=== PATIENT | male | born 1990 | race Caucasian/White ===

== ENCOUNTER 2022-08-04 15:29 | Emergency (ER) | payer OTHER, SELFPAY ==
[2022-08-04 15:37] VITALS: PULSE 91; RESP 16; TEMP 36.9; O2SAT 99; BMI 25.7
--- NOTE | 2022-08-04 15:42 | ED_ITS ---
HPI - Skin/Abscess/Foreign Bdy General Chief complaint: Skin/Abscess/Foreign Body Stated complaint: right leg pain Source: patient Mode of arrival: ambulatory Limitations: no limitations and language barrier History of Present Illness HPI narrative: 32 year old male recently moved from [place] presents to the ED with a painful rash to his right knee He had the same thing while in [place] a month ago was given a cream and the rash returned worse. he denies fever chills cough nausea vomiting or diarrhea. He has not fallen no injuries and is otherwise healthy. He states he has exzema and diabetes. He has never had the rash this bad to his knee. MD complaint: rash Related Data Previous Rx's Medication Instructions Recorded hydrocortisone-aloe vera 1 % 1 appl topical BID #28 grams 08/04/22 topical cream (Cortisone with Aloe) prednisone 20 mg tablet 60 mg PO DAILY Asthma 21 days #63 08/04/22 tabs Allergies Allergy/AdvReac Type Severity Reaction Status Date / Time No Known Allergies Allergy Verified 08/04/22 15:35 Review of Systems Review of Systems: Review of systems: General: Patient denies any fever chills recent illness or falls Musculoskeletal: Denies back pain or body aches or other injuries HEENT: denies headache, runny nose, ear pain Respiratory: denies shortness of breath, cough Cardiovascular: no chest pain or palpitations : denies dysuria, frequency Abdomen: no nausea vomiting denies abdominal pain Extremities: right knee pain and swelling Skin: rashes to knee and elbows no diaphoresis Yes all other systems are reviewed and are negative PMFSH Past Medical History Attestation statement: The following information was validated with the patient. Physical Exam Vital Signs: Vital Signs: Last Vital Signs Temp 98.4 F 08/04/22 15:37 Pulse 91 08/04/22 15:37 Resp 16 08/04/22 15:37 Pulse Ox 99 08/04/22 15:37 O2 Del Method 08/04/22 15:37 BMI result Body Mass Index 25.7 General: Well-appearing well-nourished in no signs of distress HEENT: Normocephalic atraumatic Neck: No signs of JVD, no masses no tenderness or lymphadenopathy Cardiovascular: Regular rate and rhythm Respiratory: Clear to auscultation bilaterally Abdomen: Soft nontender no masses Extremities: Normal pedal pulses no signs of edema Skin: Dry plagues to elbows and kness. The right knee has signs of excortiation all the tendon are intact no signs of infection Dry warm no rashes Back: No tenderness full ROM MDM - Skin/Abscess/Foreign Bdy MDM Narrative Medical decision making narrative: Concern for psoriasis with rash to extensor services elbows and knees. The plaque on the right knee is very excoriated no signs of infection. I will start on a slow prednisone taper and cortizone cream and have the patient follow up and establish with a PCP Differential Diagnosis Differential diagnosis: Likely eczema and contact dermatitis Discharge Plan Discharge Clinical Impression: Psoriasiform dermatitis, Arthritis with psoriasis Instructions: Psoriasis (ED) Additional Instructions: Please call to follow up with a doctor. Your blood sugar is going to go up with the prednisone. If you have any other concerns please return to the ED. Prescriptions: New prednisone 20 mg tablet 60 mg PO DAILY 21 Days Qty: 63 0RF Rx Instructions: Please take 3 tabs for 5 days, 2 tabs for 5 days 1 tab for 5 days. hydrocortisone-aloe vera [Cortisone with Aloe] 1 % cream 1 appl topical BID Qty: 28 0RF
[2022-08-04] MEDS: predniSONE 20 MG TABLET 60 MG PO (15:50)
[2022-08-04] MEDS: Acetaminophen 325 MG TABLET 650 MG PO (15:51)
== END 2022-08-04 16:00 | disposition home or self-care (01) ==
PROVIDERS: Emergency Provider Student in an Organized Health Care Education/Training Program
DX: L40.0 Psoriasis vulgaris (principal); L40.50 Arthropathic psoriasis, unspecified
CPT/HCPCS: 99283

== ENCOUNTER 2025-03-09 11:12 | Outpatient (REF) | payer MEDICAID, OTHER, SELFPAY ==
--- OUTSIDE RECORDS SUMMARY | 2025-03-09 13:23 | XMS_ITS | Encounter Summary ---
Author Organization [employer] Address [address] [facility] [address] [place] [address] Care Team Providers Care Mushroom Sorter Grader Name Role Phone Bethanie Meier MD Primary Care Provider [phone] Reason for Visit * Reason Comments Med Change Request Encounter Details Date Type Department Care Team ([facility] Contact Info) Description 03/09/2025 Refill [facility] [address] [place] [address] Bethanie Meier MD [address] [place] [address] Type 2 diabetes mellitus without complication, without long-term current use of insulin ([facility]) Social History Tobacco Use Types Packs/Day Years Used Date Smoking Tobacco: Never Smokeless Tobacco: Never Alcohol Answer Date Recorded Q1: How often do you have a drink containing alc ohol? 2 03/09/2025 Q2: How many drinks containi ng alcohol do you have on a typical day when you are drinking? 0 03/09/2025 Q3: How often do you have six or more drinks on one occasion? 2 03/09/2025 Depression Answer Date Recorded Patient Health Questionnaire-9 Score 0 03/09/2025 Patient Health Questionnaire-9 Score 0 03/09/2025 Last PHQ-9: Questionnaire Data Not on file 0 03/09/2025 Housing Stability Answer Date Recorded What is your housing situation today? I have marisa reddy 03/09/[address] you li ve. Do you have problems with any of the following? None of the above 03/09/2025 Food Insecurity Answer Date Recorded Within the past 12 months, y ou worried that your food would run out before you got money to buy more: Never True 03/09/2025 Within the past 12 months,th e food you bought just didn't last and you didn't have enough money to get more: Never True Transportation Answer Date Recorded In the past 12 months, has l ack of transportation kept you from medical appts, meetings, work or from getting things needed for daily living? No 03/09/2025 Utilities Answer Date Recorded In the past 12 months, has t he electric, gas, oil or water company threatened to shut off services in your home? No 03/09/2025 Depression Answer Date Recorded Patient Health Questionnaire-2 Score 0 03/09/2025 Internet Access Answer Date Recorded Internet Access Q1 Yes 03/09/2025 Internet Access Q2 Not on file 03/09/2025 Sex and Gender Information Value Date Recorded Sex Assigned at Male 11/11/2022 1:22 PM EST Legal Sex Male 1:19 PM EST Gender Identity Male 11/11/2022 1:22 PM EST Sexual Orientation Straight 02/23/2025 2: 36 PM EDT documented as of this encounter Functional Status * Audit-C Score Answer Date of Assessment Author 2 03/09/2025 10:40 AM Bethanie López MD * Question Answer Date of Assessment Author Q1: How often do you have a drink containing alcohol? Monthly or less 03/09/2025 10:40 AM Kristian López MD Q2: How many drinks containing alcohol do you have on a typical day when you are drinking? Patient does not drink 03/09/2025 10:40 AM Bethanie López MD Q3: How often do you have six or more drinks on one occasion? Less than monthly 03/09/2025 10:40 AM Kristian López MD * Over the past 2 weeks, how often have you been bothered by any of the following problems? Question Answer Date of Assessment Author Patient Health Questionnaire-2 Score 0 02/13 10:14 AM July Rod MA * Little interest or pleasure in doing things Answer Date of Assessment Author Not at all 03/09/2025 10:14 AM EDT Jennifer Brown MA * Feeling down, depressed, or hopeless Answer Date of Assessment Author Not at all 03/09/2025 10:14 AM EDT Jennifer Brown MA * Trouble falling or staying asleep, or sleeping too much Answer Date of Assessment Author Not at all 03/09/2025 10:14 AM EDT Jennifer Brown MA * Feeling tired or having little energy Answer Date of Assessment Author Not at all 03/09/2025 10:14 AM EDT Jennifer Brown MA * Poor appetite or overeating Answer Date of Assessment Author Not at all 03/09/2025 10:14 AM EDT Jennifer Brown MA * Feeling bad about yourself - or that you are a failure or have let yourself or your family down Answer Date of Assessment Author Not at all 03/09/2025 10:14 AM EDT Jennifer Brown MA * Trouble concentrating on things, such as reading the newspaper or watching television Answer Date of Assessment Author Not at all 03/09/2025 10:14 AM EDT Jennifer Brown MA * Moving or speaking so slowly that other people could have noticed? Or the opposite - being so fidgety or restless that you have been moving around a lot more than usual. Answer Date of Assessment Author Not at all 03/09/2025 10:14 AM EDJennifer Agarwal MA * Thoughts that you would be better off or hurting yourself in some way Answer Date of Assessment Author Not at all 03/09/2025 10:14 AM EDT Jennifer Brown MA * Patient Health Questionnaire-9 Score Answer Date of Assessment Author 0 03/09/2025 10:14 AM EDT Jennifer Brown MA documented as of this encounter Plan of Treatment Upcoming Encounters Date Type Department Care Team (Late st Contact Info) Description 04/20/2025 11:15 AM EDT Office Visit [facility] [address] [place] [address] Bethanie Meier MD [address] [place] [address] documented as of this encounter Visit Diagnoses Diagnosis Type 2 diabetes mellitus without complication, without long-term current use of insulin ([facility]) documented in this encounter Additional Health Concerns Assessment Noted Time PHQ-9 Depression Total Score: 0 03/09/20 10:14 AM EDT documented as of this encounter Care Teams Mushroom Sorter Grader Relationship Specialty Start Date End Date Bethanie Meier MD [address] [place] [id number] PCP - General Internal Medicine 03/09/25 documented as of this encounter
[2025-03-09 14:29] LABS: MANUAL DIFF FLAG NO
[2025-03-09 14:35] LABS: Basophils Percent Auto 0.4 % (0-2); Eosinophils Absolute Auto 0.2 X10*3/uL (0.0-0.4); Eosinophils Percent Auto 2.7 % (0-4); Hematocrit 45.1 % (42.0-52.0); Hemoglobin 16.6 g/dl (14.0-18.0); Imm Gran Abs Auto 0.05 X10*3/uL (0.00-0.03); Imm Gran Pct Auto 0.6 % (0.0-0.4); Lymphocytes Absolute Auto 2.8 X10*3/uL (1.2-4.9); Lymphocytes Percent Auto 35.7 % (20-40); Mean Corpuscular HGB Conc 36.8 g/dl (31.0-36.0); Mean Corpuscular Hemoglobin 29.5 pg (27.0-33.0); Mean Corpuscular Volume 80.1 fL (80.0-98.0); Mean Platelet Volume 9.6 fL (9.4-12.4); Monocytes Absolute Auto 0.6 X10*3/uL (0.1-1.2); Monocytes Percent Auto 7.1 % (2-11); Neutrophils Absolute Auto 4.2 x10*3/uL (2.0-8.3); Neutrophils Percent Auto 53.5 % (45-73); Platelet Count 223 X10*3/uL (160-400); Red Blood Count 5.63 X10*6/uL (4.60-5.80); Red Cell Distribution Width 12.3 % (11.0-16.0); White Blood Count 7.9 X10*3/uL (4.8-10.8)
[2025-03-09 15:27] LABS: Albumin Level 4.7 g/dL (3.5-5.0); Alkaline Phosphatase 103 U/L (39-117); Anion Gap 13 (12-20); Aspartate Amino Transferase 32 U/L (5-37); Bilirubin Total 1.3 mg/dL (0.0-1.0); Blood Urea Nitrogen 10 mg/dL (9-16); Calcium 9.9 mg/dL (8.4-10.2); Carbon Dioxide 28 mmol/L (22-29); Chloride 103 mmol/L (96-108); Cholesterol 218 mg/dL (<200); Estimated Glomerular Filt Rate > 60; Glucose Random 251 mg/dL (60-115); HDL Cholesterol 43 mg/dL (>40); LDL Cholesterol Calculated 139 mg/dL (<100); Potassium 5.7 mmol/L (3.3-5.1); Sodium 138 mmol/L (135-145); Total Protein 7.2 g/dL (6.5-8.0); Triglycerides 180 mg/dL (<150)
[2025-03-09 15:38] LABS: Alanine Aminotransferase 64 U/L (0-40)
[2025-03-10 08:52] LABS: ~Hepatitis C Antibody Nonreactive (Nonreactive)
== END 2025-03-09 11:13 | disposition home or self-care (01) ==
LOC: HO.CHCLDS 11:12
PROVIDERS: Visit Provider Internal Medicine
DX: E11.9 Type 2 diabetes mellitus without complications (principal); I10 Essential (primary) hypertension
CPT/HCPCS: 36415; 80053; 80061; 84443; 85025; 86803

== ENCOUNTER 2025-05-19 15:28 | Outpatient (REF) | payer MEDICAID, OTHER, SELFPAY ==
--- OUTSIDE RECORDS SUMMARY | 2025-05-19 15:33 | XMS_ITS | Encounter Summary ---
Author Organization [employer] Address [address] [facility] [address] [place] [address] Care Team Providers Care Aircraft Cabin Cleaner Name Role Phone Bethanie Meier MD Primary Care Provider [phone] Niurka Chi PharmD Unavailable [phone] Encounter Details Date Type Department Care Team (Latest Contact Info) Description 05/19/2025 Travel Social History Tobacco Use Types Packs/Day Years [...] PM EDT documented as of this encounter Plan of Treatment Upcoming Encounters Date Type Department Care Team (Late st Contact Info) Description 05/25/2025 9:30 AM EDT Office Visit [facility] [address] [place] [address] Bethanie Meier MD [address] [place] [address] 06/23/2025 3:00 PM EDT Medication Management [facility] [address] [place] [address] Niurka Chi PharmD [address] [place] [address] documented as of this encounter Visit Diagnoses Not on filedocumented in this encounter Additional Health Concerns Assessment Noted Time PHQ-9 Depression Total Score: 0 03/09/20 10:14 AM EDT documented as of this encounter Care Teams Aircraft Cabin Cleaner Relationship Specialty Start Date End Date Bethanie Meier MD [address] [place] [address] PCP - General Internal Medicine 03/09/25 Niurka Chi PharmD [address] [place] [address] Pharmacist Pharmacy 04/11/25 documented as of this encounter
--- OUTSIDE RECORDS SUMMARY | 2025-05-19 15:33 | XMS_ITS | Clinical Summary ---
Author Organization [employer] Address [address] [facility] 7[address] [place] [address] Care Team Providers Care Film Rental Clerk Name Role Phone Bethanie Meier MD Primary Care Provider [phone] Niurka Chi PharmD Unavailable [phone] Allergies No known active allergies Medications metFORMIN (Glucophage) 1000 MG tabletIndications :Type 2 diabetes mellitus without complication, without long-term current use of insulin ([facility]) Take 1 tablet (1,000 mg) by mouth with breakfast and with evening meal. 180 tablet 1 04/11/20 25 Active Blood Glucose Monitoring Suppl (FreeStyle [place] Lite) w/Device kitIndications:Ty pe 2 diabetes mellitus without complication, without long-term current use of insulin ([facility]) Use to test blood sugar 1 times daily 1 kit 04/11/20 25 Active Alcohol Swabs 70 % padsIndications:T ype 2 diabetes mellitus without complication, without long-term current use of insulin ([facility]) Use to test blood sugar 1 times daily 100 each 11 04/11/20 25 Active naproxen (Naprosyn) 500 MG tabletIndications :Acute nonintractable headache, unspecified headache type Take 1 tablet (500 mg) by mouth if needed each day for mild pain. Do not take Naproxen more than 3 times a week for the headache. 60 tablet 3 04/20/20 25 2024 Active FREESTYLE LITE test stripIndications: Type 2 diabetes mellitus without complication, without long-term current use of insulin ([facility]) Use to test blood sugar 1 times daily 100 each 12 04/20/20 25 2025 Active FreeStyle lancetsIndication s:Type 2 diabetes mellitus without complication, without long-term current use of insulin ([facility]) 1 each by Other route Once per day. 100 each 3 04/20/20 Active repaglinide (Prandin) 0.5 MG tabletIndications :Type 2 diabetes mellitus without complication, without long-term current use of insulin ([facility]) Take 1 tablet (0.5 mg) by mouth before breakfast, before lunch, and before evening meal. 90 tablet 11 04/20/20 25 2025 Active fluconazole (Diflucan) 150 MG tabletIndications :Candidiasis of genitalia 150 mg on day 1, 150 mg on day 3 2 tablet 04/20/20 Active FREESTYLE LITE test stripIndications: Type 2 diabetes mellitus without complication, without long-term current use of insulin ([facility]) Use to test blood sugar 1 times daily 100 each 12 04/11/20 25 2024 Discontinued(R eorder (will not trigger notification to Pharmacy)) FreeStyle lancetsIndication s:Type 2 diabetes mellitus without complication, without long-term current use of insulin ([facility]) 1 each by Other route Once per day. 100 each 3 04/11/20 25 2024 Discontinued(R eorder (will not trigger notification to Pharmacy)) fluconazole (Diflucan) 150 MG tabletIndications :Candidiasis of genitalia 150 mg on day 1, 150 mg on day 3 2 tablet 04/11/20 25 2024 Discontinued(R eorder (will not trigger notification to Pharmacy)) Active Problems Problem Noted Date Diagnosed Date Type 2 diabetes mellitus wit hout complication, without long-term current use of insulin 03/09/2025 Primary hypertension 03/09/2025 Stuttering 03/09/2025 Decreased hearing of both ears 03/09/2025 Encounters Date Type Department Care Team Description 05/19/2025 Telephone [facility] [address] [place] [address] Bethanie Meier MD Appointment Request 05/19/2025 Travel 05/05/2025 Telephone [facility] [address] [place] [address] Bethanie Meier MD No Show 05/05/2025 Telephone [facility] [address] [place] [address] Bethanie Meier MD Care Coordination 05/05/2025 Travel 04/20/2025 11:15 AM EDT Office Visit [facility] [address] [place] [address] Bethanie Meier MD Type 2 diabetes mellitus without complication, without long-term current use of insulin (CMS/HCC) (Primary Dx); Primary hypertension; Acute nonintractable headache, unspecified headache type; Candidiasis of genitalia; Dietary counseling; Exercise counseling; Class 1 obesity due to excess calories with serious comorbidity and body mass index (BMI) of 31.0 to 31.9 in adult 04/20/2025 Travel 04/11/2025 2:45 PM EDT Office Visit [facility] [address] [place] [address] Bethanie Meier MD Type 2 diabetes mellitus without complication, without long-term current use of insulin (CMS/HCC) (Primary Dx); Candidiasis of genitalia; Hyperkalemia 04/11/2025 Orders Only [facility] [address] [place] [address] Bethanie Meier MD Type 2 diabetes mellitus without complication, without long-term current use of insulin (CMS/HCC) (Primary Dx) 04/11/2025 Travel 03/22/[address] [facility] [address] [place] [phone] Bethanie Meier MD 03/10/[address] [facility] [address] [place] [phone] Bethanie Wyatt MD 03/10/2025 Results Follow-Up [facility] [address] [place] [address] Katerin Dorado, FERNANDO CBC auto differential, Comprehensive Metabolic Panel, Lipid Panel, Standard, Additional followed-up results: 3 03/09/2025 10:00 AM EDT Office Visit [facility] [address] [place] [address] Bethanie Meier MD Type 2 diabetes mellitus without complication, without long-term current use of insulin (CMS/HCC) (Primary Dx); Primary hypertension; Stuttering; Decreased hearing of both ears 03/09/2025 Telephone [facility] [address] [place] [address] Bethanie Meier MD Results 03/09/2025 Orders Only [facility] [address] [place] [address] Bethanie Meier MD Hyperkalemia (Primary Dx); Transaminitis 03/09/2025 Refill [facility] [address] [place] [address] Bethanie Meier MD Type 2 diabetes mellitus without complication, without long-term current use of insulin (CMS/HCC) 03/09/2025 Travel 03/08/2025 Telephone [facility] [address] [place] [address] Bethanie Meier MD chart prep 03/03/[address] [facility] [address] [place], [place] [phone] Jose Corrales MD Pre-visit Planning (Pre visit planning LVM ) 02/23/2025 Travel from Last 3 Months Family History Medical History Relation Name Comments Diabetes type II Brother Diabetes type II Father Hypertension Father Diabetes Mother Hypertension Mother Relation Name Status Comments Brother Father Mother Social History Tobacco Use Types Packs/Day Years Used Date Smoking Tobacco: Never Smokeless Tobacco: Never Tobacco Cessation:Counseling Given: Not Answered Alcohol Answer Date Recorded Q1: How often [...] Orientation Straight 02/23/2025 2: 36 PM EDT Last Filed Vital Signs Vital Sign Reading Time Taken Comments Blood Pressure 134/76 05/05/2025 10:17 AM EDT Pulse 79 05/05/2025 10:17 AM EDT Temperature 36.6 C (97.8 F) 04/20/2025 11:41 AM EDT Respiratory Rate 20 04/20/2025 11:41 AM EDT Oxygen Saturation 99% 05/05/2025 10:17 AM EDT Inhaled Oxygen Concentration - - Weight 108 kg (237 lb) 04/20/2025 11:41 AM EDT Height 185.4 cm (6' 1 ) 04/20/2025 11:41 AM EDT Body Mass Index 31.27 04/20/2025 11:41 AM EDT Plan of Treatment Upcoming Encounters Date Type Department Care Team (Late st Contact Info) Description 05/25/2025 9:30 AM EDT Office Visit [facility] [address] [place] [address] Bethanie Meier MD [address] [place] [address] 06/23/2025 3:00 PM EDT Medication Management [facility] [address] [place] [address] Niurka Chi, PharmD [address] [place], [place] [phone] Health Maintenance Due Date Last Done Comments HIV Screening 1992 Disability Screening 1992 Diabetes: Foot Exam 2002 Eye Exam 2002 Family Planning (PISQ) 2007 HPV Vaccines (1 - Male 3-dos e series) 2007 DTaP/Tdap/Td Vaccines (1 - Tdap) 2011 Diabetes: Urine Protein Screening 2011 Hepatitis B Vaccines (1 of 3 - 19+ 3-dose series) 2011 Pneumococcal Vaccine: Pediatrics (0 to 5 Years) and At-Risk Patients (6 to 49) Years (1 of 2 - PCV) 2011 COVID-19 Vaccine (1 - 2023-2 5 season) 2025 Influenza Vaccine (#1) 2025 Diabetes: Hemoglobin A1C 06/09/2025 03/09/2025 Alcohol/Substance Use Screening 03/09/2026 03/09/2025 Depression Screening 03/09/2026 03/09/2025, 03/09/2025 Lipid Panel 03/09/2026 03/09/2025 SDOH Screening 03/09/2026 03/09/2025 Tobacco Screening 04/20/2026 04/20/2025 Zoster Vaccines (1 of 2) 2042 RSV Patients and Patients Aged 60 years or older (1 - 1-dose 75+ series) 2067 Hepatitis C Screening Completed 03/09/2025 HIB Vaccines Aged Out No longer eligi ble based on patient's age to complete this topic Hepatitis A Vaccines Aged Out No long er eligible based on patient's age to complete this topic IPV Vaccines Aged Out No longer eligi ble based on patient's age to complete this topic Meningococcal B Vaccine Aged Out No l onger eligible based on patient's age to complete this topic Meningococcal Vaccine Aged Out No bailee leonardo eligible based on patient's age to complete this topic RSV under 20 months Aged Out No longe r eligible based on patient's age to complete this topic Rotavirus Vaccines Aged Out No longer eligible based on patient's age to complete this topic Procedures Procedure Name Priority Date/Time Associated Diagnosis Comments POCT GLUCOSE Routine 04/20/2025 11:54 AM EDT Type 2 diabetes mellitus without complication, without long-term current use of insulin (CMS/HCC) POCT GLUCOSE Routine 04/11/2025 2:57 PM EDT Type 2 diabetes mellitus without complication, without long-term current use of insulin (CMS/HCC) POCT URINALYSIS DIPSTICK Routine 04/11/2025 1:40 PM EDT Type 2 diabetes mellitus without complication, without long-term current use of insulin (CMS/HCC) POCT GLUCOSE Routine 04/11/2025 1:20 PM EDT Type 2 diabetes mellitus without complication, without long-term current use of insulin (CMS/HCC) HEPATITIS C AB W/REFL TO HCV RNA, QN, PCR Routine 03/09/2025 11:17 AM EDT Type 2 diabetes mellitus without complication, without long-term current use of insulin (CMS/HCC) Primary hypertension TSH W/REFLEX TO FT4 Routine 03/09/2025 1 1:17 AM EDT Type 2 diabetes mellitus without complication, without long-term current use of insulin (CMS/HCC) Primary hypertension LIPID PANEL, STANDARD Routine 03/09/2025 11:17 AM EDT Type 2 diabetes mellitus without complication, without long-term current use of insulin (CMS/HCC) Primary hypertension COMPREHENSIVE METABOLIC PANEL Routine 03/09/2025 11:17 AM EDT Type 2 diabetes mellitus without complication, without long-term current use of insulin ([facility]) Primary hypertension CBC WITH AUTO DIFFERENTIAL Routine 03/09/2025 11:17 AM EDT Type 2 diabetes mellitus without complication, without long-term current use of insulin ([facility]) Primary hypertension POCT GLYCATED HEMOGLOBIN, TOTAL Routine 03/09/2025 11:14 AM EDT Type 2 diabetes mellitus without complication, without long-term current use of insulin ([facility]) POCT GLUCOSE Routine 03/09/2025 11:13 AM EDT Type 2 diabetes mellitus without complication, without long-term current use of insulin ([facility]) from Last 3 Months Results * (ABNORMAL) POCT Glucose (04/20/2025 11:54 AM EDT) Only the most recent of4 resultswithin the time period is included. Glucose Blood, POC 230(A) 60 - 200 mg/dL QC Media Lot # [id number] Lot# Expiration Date Blood Capillary blood specimen / Unknown 04/20/2025 11:54 AM EDT Bethanie Meier MD POINT OF CARE TEST ENTER/ED IT ORDERABLES Final Result * (ABNORMAL) POCT Urinalysis (04/11/2025 1:40 PM EDT) Color, UA Yellow Clarity, UA Clear Glucose, UA 4+ >500 Bilirubin, UA Negative Ketones, UA Negative Spec Grav, UA 1.015 Blood, UA Negative Negative, None Detected pH, UA 5.5 Protein, UA Negative Urobilinogen, UA 0.2 Leukocytes, UA Negative Negative, Rare, Trace Nitrite, UA Negative Negative, None Detected Appearance, UA normal QC Media Lot # [id number] Lot# Expiration Date 3312,026 Urine 04/11/2025 1:40 PM EDT Bethanie Meier MD POINT OF CARE TEST ENTER/ED IT ORDERABLES Final Result * TSH W/Reflex to FT4 (03/09/2025 11:17 AM EDT) TSH reflex Free T4 1.10 0.32 - 4.0 uIU/mL [facility] Blood Venous blood specimen / Unknown 03/09/2025 11:17 AM EDT 03/09/2025 2:24 PM EDT Bethanie Meier MD LAB BLOOD ORDERABLES Final Result Performing Organization Address City/State/[facility] Co de Phone Number [facility] [address] [place] [phone] * (ABNORMAL) CBC auto differential (03/09/2025 11:17 AM EDT) Pathologist [facility] White Blood Count 7.9 4.8 - 10.8 X10*3/uL [facility] Red Blood Count 5.63 4.60 - 5.80 X10*6/uL [facility] Hemoglobin 16.6 14.0 - 18.0 g/dl [facility] Hematocrit 45.1 42.0 - 52.0 % [facility] Mean Corpuscular Volume 80.1 80.0 - 98.0 fL [facility] Mean Corpuscular Hemoglobin 29.5 27.0 - 33.0 pg [facility] Mean Corpuscular HGB Conc 36.8(H) 31.0 - 36.0 g/dl [facility] Red Cell Distribution Width 12.3 11.0 - 16.0 % [facility] Platelet Count 223 160 - 400 X10*3/uL [facility] Mean Platelet Volume 9.6 9.4 - 12.4 fL [facility] Neutrophils Percent Auto 53.5 45 - 73 % [facility] Imm Gran Pct Auto 0.6(H) 0.0 - 0.4 % [facility] Lymphocytes Percent Auto 35.7 20 - 40 % [facility] Monocytes Percent Auto 7.1 2 - 11 % [facility] Eosinophils Percent Auto 2.7 0 - 4 % [facility] Basophils Percent Auto 0.4 0 - 2 % [facility] NRBC Pct Auto 0.0 0.0 - 0.2 /100WBC [facility] Neutrophils Absolute Auto 4.2 2.0 - 8.3 x10*3/uL [facility] Imm Gran Abs Auto 0.05(H) 0.00 - 0.03 X10*3/uL [facility] Lymphocytes Absolute Auto 2.8 1.2 - 4.9 X10*3/uL [facility] Monocytes Absolute Auto 0.6 0.1 - 1.2 X10*3/uL [facility] Eosinophils Absolute Auto 0.2 0.0 - 0.4 X10*3/uL [facility] Basophils Absolute Auto 0.0 0.0 - 0.2 X10*3/uL [facility] NRBC Abs Auto 0.000 0.0 - 0.012 X10*3/uL [facility] Blood Venous blood specimen / Unknown 03/09/2025 11:17 AM EDT 03/09/2025 2:24 PM EDT Bethanie Meier MD LAB BLOOD ORDERABLES Final Result [facility] [address] [place] [phone] * Hepatitis C Antibody with Reflex to HCV, RNA, Quantitative, Real-Time PCR (03/09/2025 11:17 AM EDT) Hepatitis C Antibody Nonreactive Nonreactive [facility] Comment:Antibodies to HCV no t detected; does not exclude early acuteHCV infection. Blood Venous blood specimen / Unknown 03/09/2025 11:17 AM EDT 03/09/2025 2:24 PM EDT us Bethanie Meier MD LAB BLOOD ORDERABLES Final Result [facility] [address] [place] [phone] * (ABNORMAL) Lipid Panel, Standard (03/09/2025 11:17 AM EDT) Triglycerides 180(H) <150 mg/dL [facility] Comment:Desirable Triglyceri de: less than 150 mg/dLBorderline High Triglyceride 150-199 mg/dLHigh Triglyceride: 200-499 mg/dLVery High Triglyceride: greater than or equal to 5OO mg/dL Cholesterol 218(H) <200 mg/dL [facility] Comment:Desirable Cholestero l: less than 200 mg/dLBorderline High Cholesterol: 200-239 mg/dLHigh Cholesterol: greater than 239 mg/dL LDL Cholesterol Calculated 139(H) <100 mg/dL [facility] Comment:Desirable LDL: less than 100 mg/dLNear Optimal/Above Optimal LDL: 110- 129 mg/dLBorderline High LDL: 130-159 mg/dLHigh LDL: 160-189 mg/dLVery High LDL: greater than or equal to 190 mg/dL HDL Cholesterol 43 >40 mg/dL [facility] Comment:Desirable HDL: great er than 40 mg/dL Note: This HDL assay may give artificially low results in patients with liver disease. Blood Venous blood specimen / Unknown 03/09/2025 11:17 AM EDT 03/09/2025 2:24 PM EDT us Bethanie Meier MD LAB BLOOD ORDERABLES Final Result [facility] [address] [place] [address] [phone] * (ABNORMAL) Comprehensive Metabolic Panel (03/09/2025 11:17 AM EDT) Sodium 138 135 - 145 mmol/L [facility] Potassium 5.7(H) 3.3 - 5.1 mmol/L [facility] Chloride 103 96 - 108 mmol/L [facility] Carbon Dioxide 28 22 - 29 mmol/L [facility] Anion Gap 13 12 - 20 [facility] Urea Nitrogen (BUN) 10 9 - 16 mg/dL [facility] Creatinine, Serum 0.79 0.5 - 1.4 mg/dL [facility] Estimated Glomerular Filt Rate >60 [facility] Comment:Chronic Kidney Disea se: Estimated GFR < 60 mL/min/1.19a6Eoutqc Kidney Disease: Estimated GFR < 15 mL/min/1.73m2 Glucose 251(H) 60 - 115 mg/dL [facility] Calcium 9.9 8.4 - 10.2 mg/dL [facility] Bilirubin, Total 1.3(H) 0.0 - 1.0 mg/dL [facility] Aspartate Amino Transferase 32 5 - 37 U/L [facility] Alanine Aminotransferase 64(H) 0 - 40 U/L [facility] Total Protein 7.2 6.5 - 8.0 g/dL [facility] Albumin Level 4.7 3.5 - 5.0 g/dL [facility] Alkaline Phosphatase 103 39 - 117 U/L [facility] Blood Venous blood specimen / Unknown 03/09/2025 11:17 AM EDT 03/09/2025 2:24 PM EDT Bethanie Meier MD LAB BLOOD ORDERABLES Final Result [facility] [address] [place] [phone] [phone] * (ABNORMAL) POCT HGB A1C (03/09/2025 11:14 AM EDT) Hemoglobin A1C 10.4(A) 4.0 - 6.0 % QC Media Lot # [id number] Lot# Expiration Date ,602 Blood 03/09/2025 11:1 4 AM EDT Bethanie Meier MD POINT OF CARE TEST ENTER/ED IT ORDERABLES Final Result from Last 3 Months Insurance [facility] F[employer] Care Teams Film Rental Clerk Relationship Specialty Start Date End Date Bethanie Meier MD [address] [place] [phone] PCP - General Internal Medicine 03/09/25 Niurka Chi, FrankD [address] [place] [address] Pharmacist Pharmacy 04/11/25
--- OUTSIDE RECORDS SUMMARY | 2025-05-19 15:33 | XMS_ITS | Encounter Summary ---
Author Organization [employer] Address [address] [facility] 7 [place] [address] Care Team Providers Care Teacher Dramatics Name Role Phone Bethanie Meier MD Primary Care Provider [phone] Niurka Chi PharmD Unavailable [phone] Encounter Details Date Type Department Care Team ([facility] st Contact Info) Description 04/11/2025 Orders Only [facility] [address] [place] [address] Bethanie Meier MD [address] [place] [address] Type 2 diabetes mellitus without complication, without long-term current use of insulin (CMS/[facility]) (Primary Dx) Social History Tobacco Use Types Packs/Day Years [...] Description 05/25/2025 9:30 AM EDT Office Visit [facility] [address] [place] [address] Bethanie Meier MD [address] [place] [address] 06/23/2025 3:00 PM EDT Medication Management [facility] [address] [place] [address] Niurka Chi, PharmD [address] [place], [place] [phone] documented as of this encounter Visit Diagnoses Diagnosis Type 2 diabetes mellitus without complication, without long-term current use of insulin ([facility])- Primary documented in this encounter Additional Health Concerns Assessment Noted Time PHQ-9 Depression Total Score: 0 03/09/20 10:14 AM EDT documented as of this encounter Care Teams Teacher Dramatics Relationship Specialty Start Date End Date Bethanie Meier MD [address] [place] [phone] PCP - General Internal Medicine 03/09/25 Niurka Chi PharmD [address] [place] [phone] Pharmacist Pharmacy 04/11/25 documented as of this encounter
--- OUTSIDE RECORDS SUMMARY | 2025-05-19 15:33 | XMS_ITS | Encounter Summary ---
Author Organization [employer] Address [address] [facility] 7 [place] [address] Care Team Providers Care Outside B2B Sales Name Role Phone Bethanie Meier MD Primary Care Provider [phone] Niurka Chi PharmD Unavailable [phone] Reason for Visit * Reason Onset Date Comments Appointment Request 05/19/2025 Encounter Details Date Type Department Care Team ([facility] Contact Info) Description 05/19/2025 Telephone [facility] [address] [place] [address] Bethanie Meier MD [address] [place] [address] Appointment Request Social History Tobacco Use Types Packs/Day Years [...] PM EDT documented as of this encounter Miscellaneous Notes * Telephone Encounter - Katerin Dorado RN - 05/19/2025 3:26 PM EDT Pt at [facility] appt and states that he has a lump on his chest for 10 years. He said his brother hasd one and the doctor told him it is meat . RN offered 05/25, 9:30 appt with PCP pt verbalized understanding and agreement with the plan of care. RN spoke to PCP and he said to put him on the schedule documented in this encounter Plan of Treatment Upcoming Encounters Date Type Department Care Team (Late st Contact Info) Description 05/25/2025 9:30 AM EDT Office Visit [facility] [address] [place], [place] [phone] Bethanie Meier MD [address] [place] [address] 06/23/2025 3:00 PM EDT Medication Management [facility] [address] [place] [address] Niurka Chi PharmD [address] [place] [address] documented as of this encounter Visit Diagnoses Not on filedocumented in this encounter Additional Health Concerns Assessment Noted Time PHQ-9 Depression Total Score: 0 03/09/20 10:14 AM EDT documented as of this encounter Care Teams Outside B2B Sales Relationship Specialty Start Date End Date Bethanie Meier MD [address] [place] [address] PCP - General Internal Medicine 03/09/25 Niurka Chi PharmD [address] [place] [address] Pharmacist Pharmacy 04/11/25 documented as of this encounter
[2025-05-19 18:14] LABS: INTERNATIONAL NORM RATIO 0.9 (0.9-1.1); Prothrombin Time 10.5 SEC (10.9-12.4)
[2025-05-19 18:30] LABS: Microalbum/Creatinine Ratio Ur 58.7 ug/mg cr (<30)
[2025-05-19 18:30] LABS: Iron 87 mcg/dL (45-160); Percent Iron Saturation 30 % (15-50); Potassium 4.1 mmol/L (3.3-5.1); Total Iron Binding Capacity 293 mcg/dL (228-428); Unsaturated Iron Binding 206 ug/dL
[2025-05-19 18:36] LABS: Ferritin 643 ng/mL (20-250)
[2025-05-22 04:18] LABS: HBS Num1 > 1000.00 mIU/mL (0-7.99); ~Hepatitis B Surface Antibody REACTIVE (Nonreactive)
== END 2025-05-19 15:29 | disposition home or self-care (01) ==
LOC: HO.CHCLDS 15:28
PROVIDERS: Visit Provider Internal Medicine
DX: Z11.59 Encounter for screening for other viral diseases (principal); Z01.84 Encounter for antibody response examination; E11.9 Type 2 diabetes mellitus without complications; E87.5 Hyperkalemia; R74.01 Elevation of levels of liver transaminase levels
CPT/HCPCS: 36415; 82043; 82570; 82728; 82784; 83540; 84132; 85610; 86706

== ENCOUNTER 2025-05-30 09:20 | Outpatient (REF) | payer MEDICAID, OTHER, SELFPAY ==
--- OUTSIDE RECORDS SUMMARY | 2025-05-30 11:47 | XMS_ITS | Encounter Summary ---
Author Organization [employer] Address [address] [facility] 7 [place] [address] Care Team Providers Care Flarer Name Role Phone Bethanie Meier MD Primary Care Provider [phone] Niurka Chi PharmD Unavailable [phone] Encounter Details Date Type Department Care Team ([facility] st Contact Info) Description 05/21/2025 Orders Only [facility] MED & PEDS [address] [place] [address] Bethanie Meier MD [address] [place] [address] Transaminitis (Primary Dx) Social History Tobacco Use Types [...] Upcoming Encounters Date Type Department Care Team ([facility] st Contact Info) Description 06/23/2025 3:00 PM EDT Medication Management [facility] MED & PEDS [address] [place] [address] Niurka Chi, PharmD [address] [place], [place] [phone] Scheduled Orders Name Type Priority Associated Diagnoses Orde r Schedule Hereditary Hemochromatosis DNA Mutation Analysis Lab Routine Transaminitis Expected: 05/21/2025 (Approximate), Expires: 05/21/2026 documented as of this encounter Visit Diagnoses Diagnosis Transaminitis- Primary Nonspecific elevation of levels of transaminase or lactic acid dehydrogenase (LDH) documented in this encounter Additional Health Concerns Assessment Noted Time PHQ-9 Depression Total Score: 0 03/09/20 25 10:14 AM EDT documented as of this encounter Care Teams Flarer Relationship Specialty Start Date End Date Bethanie Meier MD [address] [place] [address] PCP - General Internal Medicine 03/09/25 Niurka Chi, FrankD [address] [place] [address] [place] [address] Pharmacist Pharmacy 04/11/25 documented as of this encounter
--- OUTSIDE RECORDS SUMMARY | 2025-05-30 11:47 | XMS_ITS | Encounter Summary ---
Author Organization [employer] Address [address] [facility] 7 [place] [address] Care Team Providers Care Manager Research Name Role Phone Bethanie Meier MD Primary Care Provider [phone] Niurka Chi PharmD Unavailable [phone] Encounter Details Date Type Department Care Team ([facility] st Contact Info) Description 04/11/2025 Orders Only [facility] MED & PEDS [address] [place] [address] Bethanie Meier MD [address] [place] [address] Type 2 diabetes mellitus without complication, without long-term current use of insulin (CMS/[facility]) (Primary Dx) Social History Tobacco Use Types [...] Upcoming Encounters Date Type Department Care Team ([facility] st Contact Info) Description 06/23/2025 3:00 PM EDT Medication Management [facility] MED & PEDS [address] [place] [address] Niurka Chi, PharmD [address] [place] [address] documented as of this encounter Visit Diagnoses Diagnosis Type 2 diabetes mellitus without complication, without long-term current use of insulin ([facility])- Primary documented in this encounter Additional Health Concerns Assessment Noted Time PHQ-9 Depression Total Score: 0 03/09/20 25 10:14 AM EDT documented as of this encounter Care Teams Manager Research Relationship Specialty Start Date End Date Bethanie Meier MD [address] [place] [address] PCP - General Internal Medicine 03/09/25 Niurka Chi, PharmD [address] [place] [address] Pharmacist Pharmacy 04/11/25 documented as of this encounter
--- OUTSIDE RECORDS SUMMARY | 2025-05-30 11:47 | XMS_ITS | Clinical Summary ---
Author Organization [employer] Address [address] [facility] 7t [place] [address] Care Team Providers Care Lifestyle Coordinator Name Role Phone Bethanie Meier MD Primary Care Provider [phone] Niurka Chi PharmD Unavailable [phone] Allergies No known active allergies Medications metFORMIN (Glucophage) 1000 MG tabletIndications: Type 2 diabetes mellitus without complication, without long-term current use of insulin (CMS/HCC) Take 1 tablet (1,000 mg) by mouth with breakfast and with evening meal. 180 tablet 1 5 Active Blood Glucose Monitoring Suppl (FreeStyle [place] Lite) w/Device kitIndications:Typ e 2 diabetes mellitus without complication, without long-term current use of insulin (CMS/HCC) Use to test blood sugar 1 times daily 1 kit 5 Active Alcohol Swabs 70 % padsIndications:Ty pe 2 diabetes mellitus without complication, without long-term current use of insulin (CMS/HCC) Use to test blood sugar 1 times daily 100 each 11 5 Active FREESTYLE LITE test stripIndications:T ype 2 diabetes mellitus without complication, without long-term current use of insulin (CMS/HCC) Use to test blood sugar 1 times daily 100 each 12 5 026 Active FreeStyle lancetsIndications :Type 2 diabetes mellitus without complication, without long-term current use of insulin (CMS/HCC) 1 each by Other route Once per day. 100 each 3 5 Active repaglinide (Prandin) 0.5 MG tabletIndications: Type 2 diabetes mellitus without complication, without long-term current use of insulin ([facility]) Take 1 tablet (0.5 mg) by mouth before breakfast, before lunch, and before evening meal. 90 tablet 11 5 026 Active fluconazole (Diflucan) 150 MG tabletIndications: Candidiasis of genitalia 150 mg on day 1, 150 mg on day 3 2 tablet 5 Active naproxen (Naprosyn) 500 MG tabletIndications: Acute nonintractable headache, unspecified headache type Take 1 tablet (500 mg) by mouth if needed each day for mild pain. Do not take Naproxen more than 3 times a week for the headache. 60 tablet 3 5 025 Active Problems Problem Noted Date Diagnosed Date Type 2 diabetes mellitus wit hout complication, without long-term current use of insulin 03/09/2025 Primary hypertension 03/09/2025 Stuttering 03/09/2025 Decreased hearing of both ears 03/09/2025 Encounters Date Type Department Care Team Description 05/24/2025 Telephone [facility] MED & PEDS [address] [place] [address] Bethanie Meier MD chart prep 05/22/2025 Results Follow-Up [facility] MED & PEDS [address] [place] [address] Elidia Coats RN Potassium, Immunoglobulins, Quantitative, IgA, IgG, IgM, Prothrombin Time-INR, Additional followed-up results: 2 05/21/2025 Orders Only [facility] MED & PEDS [address] [place] [address] Bethanie Meier MD Transaminitis (Primary Dx) 05/19/2025 Orders Only [facility] MED & PEDS [address] [place] [address] Bethanie Meier MD 05/19/2025 Telephone [facility] MED [facility] PED[facility] [address] [place] [address] Bethanie Meier MD Appointment Request 05/19/2025 Travel 05/05/2025 Telephone [facility] [address] [place] [address] Bethanie Meier MD No Show 05/05/2025 Telephone [facility] [address] [place] [address] Bethanie Meier MD Care Coordination 05/05/2025 Travel 04/20/2025 11:15 AM EDT Office Visit [facility] P[facility] [address] [place] [address] Bethanie Meier MD Type 2 diabetes mellitus without complication, without long-term current use of insulin (CMS/HCC) (Primary Dx); Primary hypertension; Acute nonintractable headache, unspecified headache type; Candidiasis of genitalia; Dietary counseling; Exercise counseling; Class 1 obesity due to excess calories with serious comorbidity and body mass index (BMI) of 31.0 to 31.9 in adult 04/20/2025 Travel 04/11/2025 2:45 PM EDT Office Visit [facility] MED [facility] [address] [place] [address] Bethanie Meier MD Type 2 diabetes mellitus without complication, without long-term current use of insulin (CMS/HCC) (Primary Dx); Candidiasis of genitalia; Hyperkalemia 04/11/2025 Orders Only [facility] MED [facility] P[facility] [address] [place] [address] Bethanie Meier MD Type 2 diabetes mellitus without complication, without long-term current use of insulin (CMS/HCC) (Primary Dx) 04/11/2025 Travel 03/22/2025 Telephone [facility] MEDICINE [address] [place] [phone] Bethanie Wyatt MD 03/10/[address] [address] Bethanie Wyatt MD 03/10/2025 Results Follow-Up [facility] P[facility] [address] [place] [address] Katerin Dorado RN CBC auto differential, Comprehensive Metabolic Panel, Lipid Panel, Standard, Additional followed-up results: 3 03/09/2025 10:00 AM EDT Office Visit [facility] PED[facility] [address] [place] [address] Bethanie Meier MD Type 2 diabetes mellitus without complication, without long-term current use of insulin (CMS/HCC) (Primary Dx); Primary hypertension; Stuttering; Decreased hearing of both ears 03/09/2025 Telephone [facility] P[facility] [address] [place] [address] Bethanie Meier MD Results 03/09/2025 Orders Only [facility] MED [facility] PED[facility] [address] [place] [address] Bethanie Meier MD Hyperkalemia (Primary Dx); Transaminitis 03/09/2025 Refill [facility] P[facility] [address] [place] [address] Bethanie Meier MD Type 2 diabetes mellitus without complication, without long-term current use of insulin (CMS/HCC) 03/09/2025 Travel 03/08/2025 Telephone [facility] PED[facility] [address] [place] [address] Bethanie Meier MD chart prep 03/03/2025 Patient Outreach [facility] [address] [place], [place] [phone] Jose Corrales MD Pre-visit Planning (Pre visit planning LVM ) from Last 3 Months Family History Medical [...] Care Team (Late st Contact Info) Description 06/23/2025 3:00 PM EDT Medication Management [facility] MED & PEDS [address] [place] [address] Niurka Chi, PharmD [address] [place] [address] Health Maintenance Due Date Last Done Comments HIV Screening 1992 Disability Screening 1992 Diabetes: Foot Exam 2002 Eye Exam 2002 Family Planning (PISQ) 2007 HPV Vaccines (1 - Male 3-dos e series) 2007 DTaP/Tdap/Td Vaccines (1 - Tdap) 2011 Hepatitis B Vaccines (1 of 3 - 19+ 3-dose series) 2011 Pneumococcal Vaccine: Pediatrics (0 to 5 Years) and At-Risk Patients (6 to 49) Years (1 of 2 - PCV) 2011 COVID-19 Vaccine ( - 2023-2 5 season) 2025 Influenza Vaccine (#1) 2025 Diabetes: Hemoglobin A1C 06/09/2025 03/09/2025 Alcohol/Substance Use Screening 03/09/2026 03/09/2025 Depression Screening 03/09/2026 03/09/2025, 03/09/2025 Lipid Panel 03/09/2026 03/09/2025 SDOH Screening 03/09/2026 03/09/2025 Tobacco Screening 04/20/2026 04/20/2025 Diabetes: Urine Protein Screening 05/19/2026 05/19/2025 Zoster Vaccines (1 of 2) 2042 RSV [...] Procedure Name Priority Date/Time Associated Diagnosis Comments ALBUMIN, RANDOM URINE W/CREATININE Routine 05/19/2025 3:34 PM EDT HEPATITIS B SURFACE ANTIBODY, QUALITATIVE Routine 05/19/2025 3:30 PM EDT Transaminitis IRON AND TOTAL IRON BINDING CAPACITY Routine 05/19/2025 3:30 PM EDT Transaminitis FERRITIN Routine 05/19/2025 3:30 PM EDT Transaminitis PROTHROMBIN TIME-INR Routine 05/19/2025 3:30 PM EDT Transaminitis IMMUNOGLOBULINS, QUANTITATIVE, IGA, IGG, IGM Routine 05/19/2025 3:30 PM EDT Transaminitis POTASSIUM Routine 05/19/2025 3:30 PM EDT Hyperkalemia POCT GLUCOSE Routine 04/20/2025 11:54 AM EDT [...] complication, without long-term current use of insulin ([facility]/HCC) Primary hypertension TSH W/REFLEX TO FT4 Routine 03/09/2025 1 1:17 AM EDT Type 2 diabetes mellitus without complication, without long-term current use of insulin ([facility]/HCC) Primary hypertension LIPID PANEL, STANDARD Routine 03/09/2025 11:17 AM EDT Type 2 diabetes mellitus without complication, without long-term current use of insulin ([facility]/HCC) Primary hypertension COMPREHENSIVE METABOLIC PANEL Routine 03/09/2025 11:17 AM EDT Type 2 diabetes mellitus without complication, without long-term current use of insulin ([facility]/HCC) Primary hypertension CBC WITH AUTO DIFFERENTIAL Routine 03/09/2025 11:17 AM EDT Type 2 diabetes mellitus without complication, without long-term current use of insulin ([facility]/HCC) Primary hypertension POCT GLYCATED HEMOGLOBIN, TOTAL Routine 03/09/2025 11:14 AM EDT Type 2 diabetes mellitus without complication, without long-term current use of insulin ([facility]) POCT GLUCOSE Routine 03/09/2025 11:13 AM EDT Type 2 diabetes mellitus without complication, without long-term current use of insulin ([facility]) from Last 3 Months Results * (ABNORMAL) Albumin, Random Urine W/Creatinine (05/19/2025 3:34 PM EDT) Creatinine, Urine 136.14 mg/dL [facility] Microalbumin Urine 80.0 mg/L [facility] Microalbum Creatinine Ratio Ur 58.7(H) <30 ug/mg cr [facility] Comment:Albumin/Creatinine R atio Reference Ranges: Normal: < 30 ug/mg creatinine Microalbuminuria: 30 - 300 ug/mg creatinineClinical Albuminuria: > 300 ug/mg creatinine 05/19/2025 3:34 PM EDT 05/19/2025 6:03 PM EDT Bethanie Meier MD LAB URINE ORDERABLES Final Result Performing Organization Address [facility]/ZIP Co de Phone Number [facility] [address] [place] [address] [phone] * Iron And Total Iron Binding Capacity (05/19/2025 3:30 PM EDT) Pathologist [facility] Iron 87 45 - 160 mcg/dL [facility] Total Iron Binding Capacity 293 228 - 428 mcg/dL [facility] Percent Iron Saturation 30 15 - 50 % [facility] Unsaturated Iron Binding 206 ug/dL [facility] Blood Venous blood specimen / Unknown 05/19/2025 3:30 PM EDT 05/19/2025 5:51 PM EDT us Bethanie Meier MD LAB BLOOD ORDERABLES Final Result Performing Organization Address [facility]UST Co de Phone Number [facility] [address] [place] [address] [phone] * Hepatitis B Surface Antibody, Qualitative (05/19/2025 3:30 PM EDT) Pathologist [facility] ~Hepatitis B Surface Antibody REACTIVE Nonreactive [facility] Comment:REACTIVE: > 11.99 mI U/mL Blood Venous blood specimen / Unknown 05/19/2025 3:30 PM EDT 05/19/2025 5:51 PM EDT Bethanie Meier MD LAB BLOOD ORDERABLES Final Result Performing Organization Address [facility] Co de Phone Number [facility] [address] [place] [address] [phone] * (ABNORMAL) Prothrombin Time-INR (05/19/2025 3:30 PM EDT) Pathologist [facility] Prothrombin Time 10.5(L) 10.9 - 12.4 SEC [facility] INTERNATIONAL NORM RATIO 0.9 0.9 - 1.1 [facility] Comment:INTERNATIONAL NORMAL IZED RATIO (INR) REFERENCE RANGES Reference RangeFor patients not on anticoagulant therapy: 0.9 - 1.1INR ranges for oral anticoagulanttherapy:For prevention and treatment of venous thrombosis and pulmonary embolism: 2.0 - 3.0For acute myocardial infarction with aspirin therapy: 2.0 - 3.0For acute myocardial infarction without aspirin therapy: 3.0 - 4.0For patients with mechanical prosthetic heart valves: 2.5 - 3.5 Blood Venous blood specimen / Unknown 05/19/2025 3:30 PM EDT 05/19/2025 5:51 PM EDT us Bethanie Meier MD LAB BLOOD ORDERABLES Final Result Performing Organization Address [facility] de Phone Number [facility] [address] [place] [phone] * Immunoglobulins, Quantitative, IgA, IgG, IgM (05/19/2025 3:30 PM EDT) [facility] IMMUNOGLOBULIN G 1023 600 - 1640 mg/dL [facility] IMMUNOGLOBULIN A 164 47 - 310 mg/dL [facility] Immunoglobulin M 102 50 - 300 mg/dL [facility] Comment:THIS TEST WAS PERFOR MED AT:[facility] [address] [phone] CAIN MD Blood Venous blood specimen / Unknown 05/19/2025 3:30 PM EDT 05/19/2025 5:51 PM EDT us Bethanie Meier MD LAB BLOOD ORDERABLES Final Result Performing Organization Address [facility] Co de Phone Number [facility] [address] [place] [phone] * Potassium (05/19/2025 3:30 PM EDT) Potassium 4.1 3.3 - 5.1 mmol/L [facility] Blood Venous blood specimen / Unknown 05/19/2025 3:30 PM EDT 05/19/2025 5:51 PM EDT Bethanie Meier MD LAB BLOOD ORDERABLES Final Result Performing Organization Address [facility]/ZIP Co de Phone Number [facility] [address] [place] [phone] * (ABNORMAL) Ferritin (05/19/2025 3:30 PM EDT) Ferritin 643(H) 20 - 250 ng/mL [facility] Blood Venous blood specimen / Unknown 05/19/2025 3:30 PM EDT 05/19/2025 5:51 PM EDT Bethanie Meier MD LAB BLOOD ORDERABLES Final Result Performing Organization Address [facility] de Phone Number [facility] [address] [place] [phone] * (ABNORMAL) POCT Glucose (04/20/2025 11:54 AM [...] Media Lot # [id number] Lot# Expiration Date [id number] Urine 04/11/2025 1:40 PM EDT Bethanie Meier MD POINT OF CARE TEST ENTER/ED IT ORDERABLES Final Result * TSH W/Reflex to FT4 (03/09/2025 11:17 AM EDT) Pathologist [facility] TSH reflex Free T4 1.10 0.32 - 4.0 uIU/mL [facility] Blood Venous blood specimen / Unknown 03/09/2025 11:17 AM EDT 03/09/2025 2:24 PM EDT Bethanie Meier MD LAB BLOOD ORDERABLES Final Result [facility] [address] [place] [phone] * (ABNORMAL) CBC auto differential (03/09/2025 11:17 AM EDT) Pathologist [facility] White Blood Count 7.9 4.8 - 10.8 X10*3/uL [facility] Red Blood Count 5.63 4.60 - 5.80 X10*6/uL [facility] Hemoglobin 16.6 14.0 - 18.0 g/dl [facility] Hematocrit 45.1 42.0 - 52.0 % [facility] Mean Corpuscular Volume 80.1 80.0 - 98.0 fL [facility] Mean Corpuscular Hemoglobin 29.5 27.0 - 33.0 pg [facility] Mean Corpuscular HGB Conc 36.8(H) 31.0 - 36.0 g/dl [facility] Red Cell Distribution Width 12.3 11.0 - 16.0 % [facility] Platelet Count 223 160 - 400 X10*3/uL [facility] Mean Platelet Volume 9.6 9.4 - 12.4 fL [facility] Neutrophils Percent Auto 53.5 45 - 73 % [facility] Imm Gran Pct Auto 0.6(H) 0.0 - 0.4 % [facility] Lymphocytes Percent Auto 35.7 20 - 40 % [facility] Monocytes Percent Auto 7.1 2 - 11 % [facility] Eosinophils Percent Auto 2.7 0 - 4 % [facility] Basophils Percent Auto 0.4 0 - 2 % [facility] NRBC Pct Auto 0.0 0.0 - 0.2 /100WBC [facility] Neutrophils Absolute Auto 4.2 2.0 - 8.3 x10*3/uL [facility] Imm Gran Abs Auto 0.05(H) 0.00 - 0.03 X10*3/uL [facility] Lymphocytes Absolute Auto 2.8 1.2 - 4.9 X10*3/uL [facility] Monocytes Absolute Auto 0.6 0.1 - 1.2 X10*3/uL [facility] Eosinophils Absolute Auto 0.2 0.0 - 0.4 X10*3/uL [facility] Basophils Absolute Auto 0.0 0.0 - 0.2 X10*3/uL [facility] NRBC Abs Auto 0.000 0.0 - 0.012 X10*3/uL [facility] Blood Venous blood specimen / Unknown 03/09/2025 11:17 AM EDT 03/09/2025 2:24 PM EDT Bethanie Meier MD LAB BLOOD ORDERABLES Final Result [facility] [address] [place] [address] [phone] * Hepatitis C Antibody with Reflex to HCV, RNA, Quantitative, Real-Time PCR (03/09/2025 11:17 AM EDT) Hepatitis C Antibody Nonreactive Nonreactive [facility] Comment:Antibodies to HCV no t detected; does not exclude early acuteHCV infection. Blood Venous blood specimen / Unknown 03/09/2025 11:17 AM EDT 03/09/2025 2:24 PM EDT us Bethanie Meier MD LAB BLOOD ORDERABLES Final Result Performing Organization Address [facility] Co de Phone Number [facility] [address] [place] [phone] * (ABNORMAL) Lipid Panel, Standard (03/09/2025 11:17 AM EDT) Triglycerides 180(H) <150 mg/dL [facility] Comment:Desirable Triglyceri de: less than 150 mg/dLBorderline High Triglyceride 150-199 mg/dLHigh Triglyceride: 200-499 mg/dLVery High Triglyceride: greater than or equal to 5OO mg/dL Cholesterol 218(H) <200 mg/dL [facility] Comment:Desirable Cholestero l: less than 200 mg/dLBorderline High Cholesterol: 200-239 mg/dLHigh Cholesterol: greater than 239 mg/dL LDL Cholesterol Calculated 139(H) <100 mg/dL [facility] Comment:Desirable LDL: less than 100 mg/dLNear Optimal/Above Optimal LDL: 110- 129 mg/dLBorderline High LDL: 130-159 mg/dLHigh LDL: 160-189 mg/dLVery High LDL: greater than or equal to 190 mg/dL HDL Cholesterol 43 >40 mg/dL [facility] Comment:Desirable HDL: great er than 40 mg/dL Note: This HDL assay may give artificially low results in patients with liver disease. Blood Venous blood specimen / Unknown 03/09/2025 11:17 AM EDT 03/09/2025 2:24 PM EDT us Bethanie Meier MD LAB BLOOD ORDERABLES Final Result Performing Organization Address City/[facility]/ZIP Co de Phone Number [facility] [address] [place] [address] [phone] * (ABNORMAL) Comprehensive Metabolic Panel (03/09/2025 11:17 AM EDT) Sodium 138 135 - 145 mmol/L [facility] Potassium 5.7(H) 3.3 - 5.1 mmol/L [facility] Chloride 103 96 - 108 mmol/L [facility] Carbon Dioxide 28 22 - 29 mmol/L [facility] Anion Gap 13 12 - 20 [facility] Urea Nitrogen (BUN) 10 9 - 16 mg/dL [facility] Creatinine, Serum 0.79 0.5 - 1.4 mg/dL [facility] Estimated Glomerular Filt Rate >60 [facility] Comment:Chronic Kidney Disea se: Estimated GFR < 60 mL/min/[id number] Kidney Disease: Estimated GFR < 15 mL/min/1.73m2 Glucose 251(H) 60 - 115 mg/dL [facility] Calcium 9.9 8.4 - 10.2 mg/dL [facility] Bilirubin, Total 1.3(H) 0.0 - 1.0 mg/dL [facility] Aspartate Amino Transferase 32 5 - 37 U/L [facility] Alanine Aminotransferase 64(H) 0 - 40 U/L [facility] Total Protein 7.2 6.5 - 8.0 g/dL [facility] Albumin Level 4.7 3.5 - 5.0 g/dL [facility] Alkaline Phosphatase 103 39 - 117 U/L [facility] Blood Venous blood specimen / Unknown 03/09/2025 11:17 AM EDT 03/09/2025 2:24 PM EDT us Bethanie Meier MD LAB BLOOD ORDERABLES Final Result [facility] [address] [place] [phone] * (ABNORMAL) POCT HGB A1C (03/09/2025 11:14 AM EDT) Hemoglobin A1C 10.4(A) 4.0 - 6.0 % QC Media Lot # [id number] Lot# Expiration Date Blood 03/09/2025 11:1 4 AM EDT Bethanie Meier MD POINT OF CARE TEST ENTER/ED IT ORDERABLES Final Result from Last 3 Months Insurance [employer] HS [place]ULL [address] [place] [id number] [address] [place] [address] Care Teams Lifestyle Coordinator Relationship Specialty Start Date End Date Bethanie Meier MD [address] [place] [address] PCP - General Internal Medicine 03/09/25 Niurka Chi, FrankD [address] [place] [address] Pharmacist Pharmacy 04/11/25
== END 2025-05-30 09:21 | disposition home or self-care (01) ==
LOC: HO.HHCL 09:20
PROVIDERS: PCP Internal Medicine; Visit Provider Internal Medicine
DX: R74.01 Elevation of levels of liver transaminase levels (principal)
CPT/HCPCS: 36415; 81256